=== PATIENT | female | born 1995 | race African-American/Black ===

== ENCOUNTER 2024-09-25 18:23 | Emergency (ER) | payer OTHER, SELFPAY ==
--- NOTE | ~2024-09-25 | XR_ITS ---
CLINICAL HISTORY: cough 1 view chest x-ray Comparison: None Findings: No consolidation, pneumothorax, or pleural effusion. Normal size heart. No acute fracture. IMPRESSION: No consolidation. This document has been electronically signed by: Mike Solis MD on 09/25/2024 19:26:36
[2024-09-25 18:37] VITALS: BP 139/84; PULSE 99; RESP 20; TEMP 36.9; O2SAT 100; BMI 32.7
--- NOTE | 2024-09-25 18:48 | ED.GENADULT ---
HPI - General Adult General Chief complaint: Upper Respiratory Symptoms Stated complaint: Flu like symptoms Time Seen by Provider: 09/25/24 20:27 Source: patient Limitations: no limitations History of Present Illness ED Provider: Dolly Oliver PA-C HPI narrative: 29-year-old female who presents with flu-like symptoms x1 day. Associated body aches, cough, headache, her son is sick with the same symptoms. Related Data Previous Rx's ?Medication ?Instructions ?Recorded ondansetron HCl 4 mg tablet 4 mg PO Q8H PRN nausea and 09/25/24 vomiting #10 tabs oseltamivir 75 mg capsule (Tamiflu) 75 mg PO BID 5 days #10 caps 09/25/24 Allergies Allergy/AdvReac Type Severity Reaction Status Date / Time No Known Allergies Allergy Verified 09/25/24 18:41 Review of Systems Review of Systems: Yes all other systems are reviewed and are negative Constitutional: Constitutional: Reports fatigue, Reports fever(s), Reports headache(s) and Reports malaise ENT: Reports headache(s) Cardiovascular: Cardiovascular: Denies chest pain and Reports dyspnea Respiratory: Respiratory: Reports cough, Reports dyspnea and Denies wheezing Gastrointestinal: Gastrointestinal: Denies abdominal pain, Denies nausea and Denies vomiting Musculoskeletal: Musculoskeletal: Reports myalgias Neurologic: Reports headache(s) Endocrine: Endocrine: Reports fatigue Allergic/Immunologic: Allergic/Immunologic: Denies wheezing PMFSH Past Medical History Attestation statement: The following information was validated with the patient. Social History Social History Advance Directives: No Advance Directives Information Provided: No Do you have a plan to hurt others: No Plan Physical Exam ED Vital Signs: Vital Signs - 24 hr 09/25/24 18:37 Temperature 98.5 F Pulse Rate 99 Respiratory Rate 20 Blood Pressure 139/84 Pulse Oximetry 100 Oxygen Delivery Method Room Air BMI result Body Mass Index 32.7 Const Other: Alert Orientation/consciousness: patient oriented x3 Resp Other: Nonlabored respirations, lungs clear to auscultation Cardio Other: Normal peripheral perfusion Skin Other: Warm dry no rash Neuro General: patient oriented x3, gait normal, no focal motor deficits and CN's II-XI intact bilaterally Psych Other: Cooperative Course Course Course Narrative: This is a rapid medical exam performed by Dolly Oliver PA-C. The patient is a 29-year-old female who presents with flu-like symptoms x1 day. Associated body aches, cough, headache, her son is sick with the same symptoms. We will order a chest x-ray and a viral panel. The patient was stable and can return to the waiting room pending her full medical assessment. Medical Decision Making Medical Decision Making [facility] Narrative: 29-year-old female who presents with flu-like symptoms x1 day. Associated body aches, cough, headache, her son is sick with the same symptoms. No chronic issues History: Per patient I have considered the following differential diagnoses: Viral syndrome, pneumonia, bronchitis Plan: We will be obtaining a chest x-ray and a viral panel I have considered the following differential diagnoses: Labs: Influenza A positive Chest x-ray: Findings: No consolidation, pneumothorax, or pleural effusion. Normal size heart. No acute fracture. IMPRESSION: No consolidation. Lab Data Labs: Lab Results 09/25/24 Range/Units 18:54 Influenza Type A (PCR) POSITIVE A (Negative) Influenza Type B (PCR) NEGATIVE (Negative) RSV RNA Qual (PCR) NEGATIVE (Negative) SARS-CoV-2 RNA (RT-PCR) NEGATIVE (Negative) Discharge Plan Discharge Clinical Impression: Influenza Patient Disposition: Home, Self-Care Instructions: Influenza (ED) Additional Instructions: You were found to be influenza A positive. See home care instructions. The chest x-ray was clear. You can alternate between the use of [id number] ibuprofen and Tylenol for headaches, body ache and fever. Follow up with your primary care provider as needed. Take the Tamiflu as directed, as we discussed it can cause vomiting. Uses Zofran as needed if you develop nausea. Prescriptions: New oseltamivir [Tamiflu] 75 mg capsule 75 mg PO BID 5 Days Qty: 10 0RF ondansetron HCl 4 mg tablet 4 mg PO Q8H PRN (Reason: nausea and vomiting) Qty: 10 0RF Stand Alone Forms: Work/School Release Print Language: Setswana
[2024-09-25 19:37] LABS: Influenza A PCR POSITIVE (Negative); Influenza B PCR NEGATIVE (Negative); Resp Syncy Virus RNA Qual PCR NEGATIVE (Negative); SARS COV2 PCR INHOUSE NEGATIVE (Negative)
[2024-09-25 21:58] VITALS: BP 134/87; PULSE 89; RESP 16; TEMP 37; O2SAT 96
== END 2024-09-25 21:58 | disposition home or self-care (01) ==
PROVIDERS: Physician Assistant Medical; Emergency Provider Emergency Medicine
DX: J10.1 Influenza due to other identified influenza virus with other respiratory manifestations (principal); R05.9 Cough, unspecified; R51.9 Headache, unspecified; R52 Pain, unspecified
CPT/HCPCS: 0241U; 71045; 99282; 99283

== ENCOUNTER → 2024-09-25 18:45 | Outpatient (BNV) | payer MEDICAID, SELFPAY | PROVIDERS: Visit Provider Radiology Neuroradiology | DX: R05.9 Cough, unspecified (principal) | CPT/HCPCS: 71045 ==